=== PATIENT | male | born 1970 | race Caucasian/White ===

== ENCOUNTER 2018-03-23 03:38 | Observation (INO) | payer OTHER ==
[~2018-03-23] VITALS: Ht 175.3 cm; Wt 106.7 kg
[2018-03-23] MEDS ORDERED: ONDANSETRON 4 MG INJ IV STA (03:57)
[2018-03-23] MEDS ORDERED: NITROGLYCERIN 2% 1 GM OINT PKT TD STA (03:57)
[2018-03-23] MEDS ORDERED: ASPIRIN 81 MG TAB PO STA (03:57)
[2018-03-23] MEDS ORDERED: morphine 4 MG/ML VIAL IV STA (03:57)
--- NOTE | 2018-03-23 04:03 | ERD ---
ER Documentation Chief Complaint Chief Complaint C/O LT SIDED CP, LT ARM PAIN AND NUMBNESS X2 HRS, HX OF WI, 2 STENTS HPI 47-year-old gentleman history of coronary artery disease status post 2 stents who presents to the emergency room with chest discomfort, left arm discomfort with associated nausea and diaphoresis. Symptoms are improved at this time with only mild paresthesia to his left arm. No mid back pain. No fevers chills cough or shortness of breath. ROS All systems reviewed and are negative except as per history of present illness. FmHx Family History: No diabetes Physical Exam Vitals Vital Signs Date Temp Pulse Resp B/P (MAP) Pulse Ox O2 O2 Flow FiO2 Time Delivery Rate 03/23/18 Nasal 2 04:00 Cannula 03/23/18 96.5 74 18 165/88 98 03:41 (113) Physical Exam General: Well developed, well nourished, no acute distress Head: Normocephalic, atraumatic. Eyes: Pupils equally reactive, EOM intact ENT: Moist mucous membranes Neck: Supple, no lymphadenopathy Respiratory: Lungs clear bilaterally, no distress Cardiovascular: RRR, no murmurs, rubs, or gallops Abdominal: Soft, non-tender, non-distended, no peritoneal signs : Deferred MSK: No edema, no unilateral swelling, 5/5 strength Neurologic: Alert and oriented, moving all extremities, normal speech, no focal weakness, no cerebellar signs Skin: No rash Psych: Normal mood Result Diagram: 03/23/18 0400 03/23/18 0400 Results 24 hrs Laboratory Tests Test 03/23/18 04:00 White Blood Count 7.4 10^3/ul Red Blood Count 5.87 10^6/ul Hemoglobin 14.0 g/dl Hematocrit 45.2 % Mean Corpuscular Volume 77.0 fl Mean Corpuscular Hemoglobin 23.9 pg Mean Corpuscular Hemoglobin Concent 31.0 g/dl Red Cell Distribution Width 14.2 % Platelet Count 263 10^3/UL Mean Platelet Volume 11.3 fl Immature Granulocytes % 0.300 % Neutrophils % 60.3 % Lymphocytes % 30.2 % Monocytes % 6.1 % Eosinophils % 2.6 % Basophils % 0.5 % Nucleated Red Blood Cells % 0.0 /100WBC Immature Granulocytes # 0.020 10^3/ul Neutrophils # 4.4 10^3/ul Lymphocytes # 2.2 10^3/ul Monocytes # 0.5 10^3/ul Eosinophils # 0.2 10^3/ul Basophils # 0.0 10^3/ul Nucleated Red Blood Cells # 0.0 10^3/ul Sodium Level 142 mmol/L Potassium Level 4.0 mmol/L Chloride Level 109 mmol/L Carbon Dioxide Level 22 mmol/L Anion Gap 11 Blood Urea Nitrogen 16 mg/dl Creatinine 0.68 mg/dl Est Glomerular Filtrat Rate mL/min > 60 mL/min Glucose Level 123 mg/dl Calcium Level 9.1 mg/dl Troponin I < 0.012 ng/ml Current Medications Medications Dose Sig/Laure Start Time Status Last (Trade) Ordered Route PRN Stop Time Admin Dose Reason Admin Aspirin 162 mg ONCE STAT 03/23/18 DC 03/23/18 (Aspirin) PO 03:57 04:24 03/23/18 03:58 1 inch ONCE STAT 03/23/18 DC 03/23/18 Nitroglycerin TD 03:57 04:24 03/23/18 03:58 (Nitroglyceri n 2% Oint) Morphine 4 mg ONCE STAT 03/23/18 DC 03/23/18 Sulfate IV 03:57 04:24 (morphine) 03/23/18 03:58 Ondansetron 4 mg ONCE STAT 03/23/18 DC 03/23/18 HCl (Zofran IV 03:57 04:24 Inj) 03/23/18 03:58 Ondansetron 4 mg ER BRIDGE 03/23/18 HCl (Zofran PRN IV 06:00 Inj) NAUSEA AND/OR 03/24/18 05:59 VOMITING 650 mg ER BRIDGE 03/23/18 Acetaminophen PRN PO MILD 06:00 (Tylenol PAIN(1-3)OR 03/24/18 05:59 Tab) ELEVATED TEMP Procedures/MDM EKG, MONITORS, & DIAGNOSTIC IMAGING: EKG: I reviewed and interpreted a 12-lead EKG. Rhythm: Normal sinus rhythm ST Changes: No contiguous ST segment elevations T waves: No contiguous T wave inversions Impression: [No evidence of acute cardiac ischemia] Repeat EKG: EKG: I reviewed and interpreted a 12-lead EKG. Rhythm: Normal sinus rhythm ST Changes: No contiguous ST segment elevations T waves: No contiguous T wave inversions Impression: [No evidence of acute cardiac ischemia] Chest x-ray: I reviewed and interpreted a 1 view of the chest Mediastinum: No enlargement Cardiac silhouette: No cardiomegaly Airspace: Clear lung hays bilaterally without evidence of pneumothorax Bones: No evidence of fracture PROCEDURES: [None] LAB INTERPRETATION: * Negative troponin MEDICAL DECISION MAKING: The patient's history, physical exam and clinical presentation is concerning for possible cardiogenic etiology and acute coronary syndrome. This is very concerning for the patient's anginal equivalent Based on the patient's clinical exam and history and risk factors, I have a much lower clinical concern for pulmonary embolism, acute aortic dissection, pneumothorax, pneumonia, cardiac tamponade HEART Score: 5 MACE Rate: 16.6% Shared Decision Making: We had a conversation regarding risk stratification, MACE rate, and the risks, benefits, alternatives of disposition planning options. Disposition planning: Admit ER COURSE: * Aspirin and nitroglycerin provided. * Chest pain improved. Troponin negative. CONSULTATION: [None] DISPOSITION PLAN: Telemetry admission for management of chest pain to rule out acute coronary syndrome, serial enzymes, risk stratification and consideration of provocative testing CONSULTATION: Accepting care team and consultations: I discussed the current laboratory data, diagnostic imaging and emergency care provided. Admitting team: Dr. Lu Admitting team indication: Insurance directed Departure Diagnosis: Primary Impression: Chest pain Chest pain type: unspecified Qualified Codes: R07.9 - Chest pain, unspecified Additional Impression: Acute coronary syndrome Condition: Stable EMMANUELLE SANTANA MD Mar 23, 2018 04:03
[2018-03-23] MEDS ORDERED: ONDANSETRON 4 MG INJ IV PRN ×2 (06:00→06:30)
[2018-03-23] MEDS ORDERED: ACETAMINOPHEN 325 MG TAB PO PRN ×2 (06:00→06:30)
[2018-03-23] MEDS ORDERED: BISACODYL (EC) 5 MG TAB PO PRN (06:30)
[2018-03-23] MEDS ORDERED: NITROGLYCERIN (SL) 0.4 MG TAB SL PRN (06:30)
[2018-03-23] MEDS ORDERED: NACL 0.9% 3 ML SYG IV SCH (06:30)
[2018-03-23] MEDS ORDERED: DOCUSATE SODIUM 100 MG CAP PO PRN (06:30)
[2018-03-23] MEDS ORDERED: ASPI81TA52 PO (08:04)
--- NOTE | 2018-03-23 09:02 | HP ---
Date/Time of Note Date/Time of Note DATE: 03/23/18 TIME: 08:55 Assessment/Plan VTE Prophylaxis SCD applied (from Nsg): Yes Pharmacological prophylaxis: NA/contraindicated Pharm contraindication: low risk/ambulating Lines/Catheters IV Catheter Type (from Nrsg): Saline Lock Assessment/Plan Hospital Course This is a 47-year male being admitted to the telemetry floor for observation for: #1 chest pain: Rule out ACS versus anxiety. Patient gave me a different history than what he gave to the ED physician, he only reported a history of hyperlipidemia to me however according to the ED physician note was documented as having an VT and history of cardiac stents. We will need to confirm this with the patient. Nonetheless we will check an echocardiogram, will trend cardiac enzymes x3, the first set was negative. EKG was nonischemic. PRN nitro. Continue aspirin. Will check hemoglobin A 1C, lipid panel, TSH #2 Question CAD: will need to reconfirm with patient if he did have an VT and if he has cardiac stents. #3 hyperlipidemia: We will check a lipid panel, currently not on statin #4 obesity: We will check hemoglobin A1c, lipid panel, TSH, encourage diet and lifestyle modification #5 stress: I did try to delve more into the patient's stress however the patient stated it was a personal matter and he did not want to discuss it. I also discussed with him whether he would like to be seen by mental health professional however he declined at the current time. #4 DVT GI prophylaxis: SCDs, no GI prophylaxis indicated Further treatment strategy will be implemented as per the clinical course. Result Diagram: 03/23/18 0400 03/23/18 0400 Results 24hrs Laboratory Tests Test 03/23/18 04:00 White Blood Count 7.4 Red Blood Count 5.87 Hemoglobin 14.0 Hematocrit 45.2 Mean Corpuscular Volume 77.0 L Mean Corpuscular Hemoglobin 23.9 L Mean Corpuscular Hemoglobin Concent 31.0 L Red Cell Distribution Width 14.2 Platelet Count 263 Mean Platelet Volume 11.3 H Immature Granulocytes % 0.300 Neutrophils % 60.3 Lymphocytes % 30.2 Monocytes % 6.1 Eosinophils % 2.6 Basophils % 0.5 Nucleated Red Blood Cells % 0.0 Immature Granulocytes # 0.020 Neutrophils # 4.4 Lymphocytes # 2.2 Monocytes # 0.5 Eosinophils # 0.2 Basophils # 0.0 Nucleated Red Blood Cells # 0.0 Sodium Level 142 Potassium Level 4.0 Chloride Level 109 Carbon Dioxide Level 22 Anion Gap 11 Blood Urea Nitrogen 16 Creatinine 0.68 Est Glomerular Filtrat Rate mL/min > 60 Glucose Level 123 Hemoglobin A1c 5.3 Calcium Level 9.1 Troponin I < 0.012 Triglycerides Level 228 H Cholesterol Level 235 H LDL Cholesterol, Calculated 156 HDL Cholesterol 33 Cholesterol/HDL Ratio 7.1 Thyroid Stimulating Hormone (TSH) 2.550 HPI/ROS Admit Date/Time Admit Date/Time Hx of Present Illness Chief complaint: Chest pain, swelling This is a 47-year-old male who with a past medical history of hyperlipidemia who presented to [facility] after an episode of chest pain. Patient reports that he was trying to sleep and he started experiencing all of a sudden substernal chest pressure that radiated to the left arm. He reported sweating. He states that it resolved with morphine in the ER. He reports that he has been stressed for approximately 3 weeks but he declined to specify what his actual symptoms were. Please note for medical hx he did not report possible CAD hx. As per the ED physician documentation the patient reported a history of VT and cardiac stents but the patient did not endorse this to me. We will need to clarify this. Allergies: NKDA Medications: Aspirin ROS Const: As per HPI Eyes : No pain discharge or redness or change in visual acuity ENT: No pain, sore throat, congestion, congestion, dysphagia or discharge Respiratory: No shortness of breath, cough, sputum, wheezing, or pleuritic pain Cardiovascular: As per HPI GI : no change in appetite, abdominal pain, nausea, vomiting, diarrhea, constipation, or change in the color his stool Genitourinary: No dysuria, hematuria, flank pain , discharge or CVA tenderness Musculoskeletal: No joint pain, back pain, neck pain, restricted range of motion in neck or joints Skin: No rash, bruising or hives Neuro: No headache, dizziness, syncope, seizure, focal weakness Endocrine: No polyuria, polydipsia, temperature intolerance Psych: As per HPI PMH/Family/Social Past Medical History Hyperlipidemia, VT? Medications Current Medications Ondansetron HCl (Zofran Inj) 4 mg ER BRIDGE PRN IV NAUSEA AND/OR VOMITING; St art 03/23/18 at 06:00; Stop 03/24/18 at 05:59 Acetaminophen (Tylenol Tab) 650 mg ER BRIDGE PRN PO MILD PAIN(1-3)OR ELEVATED TEMP; Start 03/23/18 at 06:00; Stop 03/24/18 at 05:59 IV Flush (NS 3 ml) 3 ml PER PROTOCOL IV ; Start 03/23/18 at 06:30 Ondansetron HCl (Zofran Inj) 4 mg Q6H PRN IV NAUSEA AND/OR VOMITING; Start 03/23/18 at 06:30 Aspirin (Aspirin) 81 mg DAILY PO ; Start 03/23/18 at 09:00 Nitroglycerin (Nitroglycerin (Sl Tab) 0.4 Mg) 1 tab Q5M PRN SL CHEST PAIN; Start 03/23/18 at 06:30 Acetaminophen (Tylenol Tab) 650 mg Q6H PRN PO PAIN LEVEL 1-3 OR FEVER; Start 03/23/18 at 06:30 Docusate Sodium (Colace) 100 mg Q12H PRN PO CONSTIPATION; Start 03/23/18 at 06:30 Bisacodyl (Dulcolax) 5 mg DAILY PRN PO CONSTIPATION; Start 03/23/18 at 06:30 Coded Allergies: No Known Allergy (Unverified , 03/23/18) Past Surgical History Tonsillectomy, hernia surgery Cardiac stents? Family History Significant Family History: no pertinent family hx Social History Alcohol Use: none Smoking Status: Never smoker Drug Use: none Exam/Review of Systems Vital Signs Vitals Vital Signs Date Temp Pulse Resp B/P (MAP) Pulse Ox O2 O2 Flow FiO2 Time Delivery Rate 03/23/18 Nasal 2 04:00 Cannula 03/23/18 96.5 74 18 165/88 98 03:41 (113) Exam Exam General: Patient is a pleasant male currently lying in bed in no acute distress HEENT: Atraumatic, normocephalic. The pupils are equal, round and reactive. Extraocular motor are intact Neck: Supple with full range of motion. No rigidity or meningismus Chest: Nontender Lungs: Clear to auscultation bilaterally no crackles rales or wheezing Heart: Normal S1-S2, Regular rhythm and rate. No overt murmurs appreciated auscultation Abdomen: Obese, soft , nontender, nondistended , bowel sounds are present. No guarding no rebound tenderness , No masses or organomegaly. No costovertebral temporal angle mass Extremities: Normal to inspection, no edema no cyanosis Neurologic: Normal mental status, speech normal, cranial nerves II through XII are intact, motor and sensory are intact, no focal weakness Additional Comments EKG: I reviewed and interpreted a 12-lead EKG. Rhythm: Normal sinus rhythm ST Changes: No contiguous ST segment elevations T waves: No contiguous T wave inversions PROCEDURE: XR Chest. CLINICAL INDICATION: Chest pain TECHNIQUE: Frontal chest x-ray was obtained. COMPARISON: None. FINDINGS: The heart is not enlarged. Mediastinum is not widened. No hilar masses seen. Lungs are clear of any infiltrates. There is no effusion or pneumothorax. The osseous structures appear normal. IMPRESSION: No evidence for active cardiopulmonary disease. .Caesar Church MD, MD Date Time Electronically viewed and signed by .Caesar Church MD, MD on 03/23/2018 05:36 .A/ CC: EMMANUELLE SANTANA MD [id number] RENETTA SHORT Mar 23, 2018 09:02
[2018-03-23] MEDS: ASPIRIN 81 MG TAB PO SCH (09:11)
--- NOTE | 2018-03-23 09:27 | CONS ---
Date/Time of Note Date/Time of Note DATE: 03/23/18 TIME: 09:22 Assessment/Plan Assessment/Plan Hospital Course Chest pain: In setting of known CAD/stents, concerning for angina. Initial trop negative and EKG unremarkable. Will trend trop, if positive will need anticoagulation and cardiac cath. If second trop negative, cardiac CTA this afternoon. CAD/NV: noncompliant and only takes ASA HL Smoker: had quit for 8 yrs, now restarted 2 weeks ago -ASA -add lipitor 80mg -add metoprolol 25mg PO BID -stat trop. See above for details -possible cardiac CT today pending trop Result Diagram: 03/23/18 0400 03/23/18 0400 Results 24hrs Laboratory Tests Test 03/23/18 04:00 White Blood Count 7.4 Red Blood Count 5.87 Hemoglobin 14.0 Hematocrit 45.2 Mean Corpuscular Volume 77.0 L Mean Corpuscular Hemoglobin 23.9 L Mean Corpuscular Hemoglobin Concent 31.0 L Red Cell Distribution Width 14.2 Platelet Count 263 Mean Platelet Volume 11.3 H Immature Granulocytes % 0.300 Neutrophils % 60.3 Lymphocytes % 30.2 Monocytes % 6.1 Eosinophils % 2.6 Basophils % 0.5 Nucleated Red Blood Cells % 0.0 Immature Granulocytes # 0.020 Neutrophils # 4.4 Lymphocytes # 2.2 Monocytes # 0.5 Eosinophils # 0.2 Basophils # 0.0 Nucleated Red Blood Cells # 0.0 Sodium Level 142 Potassium Level 4.0 Chloride Level 109 Carbon Dioxide Level 22 Anion Gap 11 Blood Urea Nitrogen 16 Creatinine 0.68 Est Glomerular Filtrat Rate mL/min > 60 Glucose Level 123 Hemoglobin A1c 5.3 Calcium Level 9.1 Troponin I < 0.012 Triglycerides Level 228 H Cholesterol Level 235 H LDL Cholesterol, Calculated 156 HDL Cholesterol 33 Cholesterol/HDL Ratio 7.1 Thyroid Stimulating Hormone (TSH) 2.550 Consultation Date/Type/Reason Admit Date/Time Date of Consultation: Mar 23, 2018 Type of Consult Cardiology Reason for Consultation chest pain Requesting Provider: WAYNE SALINAS NP Hx of Present Illness 47 yo M who is my cousin's , with a h/o CAD s/p NV/PCI 2012, smoker, who presented with chest pain. He is not compliant with his meds and only takes ASA. He had quit smoking for 8 yrs but restarted 2 weeks ago due to stress. He notes significant recent stress. Last night he was still awake and started to feel chest pressure and left arm numbness which worried him as the symptoms were similar to his prior episode. Since admission he has been completely chest pain free. No SOB. per hPI Past Medical History per HPI Medications Current Medications Ondansetron HCl (Zofran Inj) 4 mg ER BRIDGE PRN IV NAUSEA AND/OR VOMITING; Start 03/23/18 at 06:00; Stop 03/24/18 at 05:59 Acetaminophen (Tylenol Tab) 650 mg ER BRIDGE PRN PO MILD PAIN(1-3)OR ELEVATED TEMP; Start 03/23/18 at 06:00; Stop 03/24/18 at 05:59 IV Flush (NS 3 ml) 3 ml PER PROTOCOL IV ; Start 03/23/18 at 06:30 Ondansetron HCl (Zofran Inj) 4 mg Q6H PRN IV NAUSEA AND/OR VOMITING; Start 03/23/18 at 06:30 Aspirin (Aspirin) 81 mg DAILY PO Last administered on 03/23/18at 09:11; Admin Dose 81 MG; Start 03/23/18 at 09:00 Nitroglycerin (Nitroglycerin (Sl Tab) 0.4 Mg) 1 tab Q5M PRN SL CHEST PAIN; Start 03/23/18 at 06:30 Acetaminophen (Tylenol Tab) 650 mg Q6H PRN PO PAIN LEVEL 1-3 OR FEVER; Start 03/23/18 at 06:30 Docusate Sodium (Colace) 100 mg Q12H PRN PO CONSTIPATION; Start 03/23/18 at 06:30 Bisacodyl (Dulcolax) 5 mg DAILY PRN PO CONSTIPATION; Start 03/23/18 at 06:30 Atorvastatin Calcium (Lipitor) 80 mg DAILY PO ; Start 03/23/18 at 09:30; Status UNV Metoprolol Tartrate (Lopressor) 25 mg BID PO ; Start 03/23/18 at 09:30; Status UNV Allergies: Coded Allergies: No Known Allergy (Unverified , 03/23/18) Social History Alcohol Use: none Smoking Status: Never smoker Drug Use: none Exam/Review of Systems Vital Signs Vitals Vital Signs Date Temp Pulse Resp B/P (MAP) Pulse Ox O2 O2 Flow FiO2 Time Delivery Rate 03/23/18 Nasal 2 04:00 Cannula 1/13/19 96.5 74 18 165/88 98 03:41 (113) Exam Constitutional: alert, oriented Psych: no complaints, nl mood/affect Head: normocephalic, atraumatic Neck: supple; No jvd Respiratory: clear to auscultation; No crackles/rales Cardiovascular: regular rate and rhythm; No edema, No systolic murmur Gastrointestinal: soft, non-tender; No distended Neurological: nl mental status, nl speech Additional Comments EKG: sinus, no ST changes Medications Medications Current Medications Ondansetron HCl (Zofran Inj) 4 mg ER BRIDGE PRN IV NAUSEA AND/OR VOMITING; Start 03/23/18 at 06:00; Stop 03/24/18 at 05:59 Acetaminophen (Tylenol Tab) 650 mg ER BRIDGE PRN PO MILD PAIN(1-3)OR ELEVATED TEMP; Start 03/23/18 at 06:00; Stop 03/24/18 at 05:59 IV Flush (NS 3 ml) 3 ml PER PROTOCOL IV ; Start 03/23/18 at 06:30 Ondansetron HCl (Zofran Inj) 4 mg Q6H PRN IV NAUSEA AND/OR VOMITING; Start 03/23/18 at 06:30 Aspirin (Aspirin) 81 mg DAILY PO Last administered on 03/23/18at 09:11; Admin Dose 81 MG; Start 03/23/18 at 09:00 Nitroglycerin (Nitroglycerin (Sl Tab) 0.4 Mg) 1 tab Q5M PRN SL CHEST PAIN; Start 03/23/18 at 06:30 Acetaminophen (Tylenol Tab) 650 mg Q6H PRN PO PAIN LEVEL 1-3 OR FEVER; Start 03/23/18 at 06:30 Docusate Sodium (Colace) 100 mg Q12H PRN PO CONSTIPATION; Start 03/23/18 at 06:30 Bisacodyl (Dulcolax) 5 mg DAILY PRN PO CONSTIPATION; Start 03/23/18 at 06:30 Atorvastatin Calcium (Lipitor) 80 mg DAILY PO ; Start 03/23/18 at 09:30; Status UNV Metoprolol Tartrate (Lopressor) 25 mg BID PO ; Start 03/23/18 at 09:30; Status UNV CHRISTA FALCON Mar 23, 2018 09:27
[2018-03-23] MEDS: ATORVASTATIN 80 MG TAB PO SCH (09:30)
[2018-03-23] MEDS: METOPROLOL 25 MG TAB PO SCH ×2 (09:30→20:53)
--- NOTE | 2018-03-23 11:27 | PN ---
Date/Time of Note Date/Time of Note DATE: 03/23/18 TIME: 11:26 Assessment/Plan VTE Prophylaxis SCD applied (from Nsg): Yes Pharmacological prophylaxis: LMWH Lines/Catheters IV Catheter Type (from Nrsg): Saline Lock Assessment/Plan Hospital Course SUBJECTIVE: Denies any chest pain. OBJECTIVE: Physical Exam General: Obese, 47 year-old male lying in bed in no apparent distress. HEENT: Normocephalic, atraumatic. Eyes: Anicteric sclerae, conjunctivae clear. ENT: Nasal septum midline, oral mucosa moist. Neck supple. Respiratory: Bilaterally clear breath sounds. No use of accessory muscles of respiration. No adventitious breath sounds. Cardiovascular: S1, S2 heard. Regular rate and rhythm. Abdomen: Soft, nontender, and nondistended. Bowel sounds positive in all 4 quadrants. Genitourinary: Deferred. Extremities: No cyanosis, no clubbing, no edema. Peripheral pulses palpable. Neurologic: Cranial nerves II through XII grossly intact. The patient is awake, alert, and oriented. Skin: Normal skin turgor. No skin rashes. Labs & Vitals per chart ASSESSMENT & PLAN 47-year-old male with comorbidities including coronary artery disease status post coronary artery stenting in 2018 & 2013, dyslipidemia, obesity, and nicotine use (quit 8 years ago, but restarted recently), who came to the emergency room with chief complaint of chest pain associated left arm numbness and diaphoresis, who was admitted to inpatient setting for further treatment and evaluation. 1. Chest pain. -Continue aspirin. -Rule out ACS, provided the patient's prior history of coronary artery disease. -Cardiology consult has obtained. -Troponins x2 negative. -CT coronary angiogram ordered. 2. History of CAD. -Status post coronary artery stenting in the past. -Continue aspirin. -Was started on statins and beta-blockers. 3. Dyslipidemia. -Continue statins. 4. Nicotine use. -Cessation advised. 5. Obesity. -BMI 34 kg/m. -Weight reduction advised. 6. Fluids, electrolytes, and nutrition. -Low-cholesterol diet. 7. DVT prophylaxis. -Subcutaneous Lovenox. 8. Plan. -Continue telemetry monitoring. -Rule out ACS with CT coronary angiogram. The patient was seen in collaboration with Dr. Day. Result Diagram: 03/23/18 0400 03/23/18 0400 Results 24hrs Laboratory Tests Test 03/23/18 04:00 03/23/18 10:02 White Blood Count 7.4 Red Blood Count 5.87 Hemoglobin 14.0 Hematocrit 45.2 Mean Corpuscular Volume 77.0 L Mean Corpuscular Hemoglobin 23.9 L Mean Corpuscular Hemoglobin Concent 31.0 L Red Cell Distribution Width 14.2 Platelet Count 263 Mean Platelet Volume 11.3 H Immature Granulocytes % 0.300 Neutrophils % 60.3 Lymphocytes % 30.2 Monocytes % 6.1 Eosinophils % 2.6 Basophils % 0.5 Nucleated Red Blood Cells % 0.0 Immature Granulocytes # 0.020 Neutrophils # 4.4 Lymphocytes # 2.2 Monocytes # 0.5 Eosinophils # 0.2 Basophils # 0.0 Nucleated Red Blood Cells # 0.0 Sodium Level 142 Potassium Level 4.0 Chloride Level 109 Carbon Dioxide Level 22 Anion Gap 11 Blood Urea Nitrogen 16 Creatinine 0.68 Est Glomerular Filtrat Rate mL/min > 60 Glucose Level 123 Hemoglobin A1c 5.3 Calcium Level 9.1 Iron Level 53 Total Iron Binding Capacity 297 Percent Iron Saturation 18 L Ferritin 133.0 Troponin I < 0.012 < 0.012 Triglycerides Level 228 H Cholesterol Level 235 H LDL Cholesterol, Calculated 156 HDL Cholesterol 33 Cholesterol/HDL Ratio 7.1 Thyroid Stimulating Hormone (TSH) 2.550 Creatine Kinase 66 Creatine Kinase Index 0.4 Creatinine Kinase MB (Mass) 0.25 Exam/Review of Systems Vital Signs Vitals Vital Signs Date Temp Pulse Resp B/P (MAP) Pulse Ox O2 O2 Flow FiO2 Time Delivery Rate 03/23/18 82 20 117/77 99 Room Air 09:30 (90) 03/23/18 2 04:00 03/23/18 96.5 03:41 Medications Medications Current Medications Ondansetron HCl (Zofran Inj) 4 mg ER BRIDGE PRN IV NAUSEA AND/OR VOMITING; Start 03/23/18 at 06:00; Stop 03/24/18 at 05:59 Acetaminophen (Tylenol Tab) 650 mg ER BRIDGE PRN PO MILD PAIN(1-3)OR ELEVATED TEMP; Start 03/23/18 at 06:00; Stop 03/24/18 at 05:59 IV Flush (NS 3 ml) 3 ml PER PROTOCOL IV ; Start 03/23/18 at 06:30 Ondansetron HCl (Zofran Inj) 4 mg Q6H PRN IV NAUSEA AND/OR VOMITING; Start 03/23/18 at 06:30 Aspirin (Aspirin) 81 mg DAILY PO Last administered on 03/23/18at 09:11; Admin Dose 81 MG; Start 03/23/18 at 09:00 Nitroglycerin (Nitroglycerin (Sl Tab) 0.4 Mg) 1 tab Q5M PRN SL CHEST PAIN; Start 03/23/18 at 06:30 Acetaminophen (Tylenol Tab) 650 mg Q6H PRN PO PAIN LEVEL 1-3 OR FEVER; Start 03/23/18 at 06:30 Docusate Sodium (Colace) 100 mg Q12H PRN PO CONSTIPATION; Start 03/23/18 at 06:30 Bisacodyl (Dulcolax) 5 mg DAILY PRN PO CONSTIPATION; Start 03/23/18 at 06:30 Atorvastatin Calcium (Lipitor) 80 mg DAILY PO ; Start 03/23/18 at 09:30 Metoprolol Tartrate (Lopressor) 25 mg BID PO ; Start 03/23/18 at 09:30 WAYNE SALINAS NP Mar 23, 2018 11:27
[2018-03-23] MEDS: ENOXAPARIN 40 MG/0.4 ML SYG SC SCH (12:39)
[2018-03-23 13:31] VITALS: PULSE 63; Ht 175.3 cm; Wt 106.7 kg
[2018-03-23 13:54] VITALS: PULSE 60
[2018-03-23] MEDS ORDERED: IOHEXOL 100 ML ONE (14:16)
[2018-03-23] MEDS ORDERED: SOD CHLORIDE 0.9% 100 ML ONE (14:16)
[2018-03-23 15:43] VITALS: BP 118/68; PULSE 63; RESP 17
[2018-03-23 16:17] VITALS: PULSE 65
[2018-03-23 20:00] VITALS: BP 119/76; PULSE 74; PULSE 80; RESP 18
[2018-03-24] VITALS: BP 110/58; PULSE 61; RESP 18
[2018-03-24 04:00] VITALS: BP 137/89; PULSE 62; PULSE 63; RESP 18
[2018-03-24 07:46] VITALS: BP 129/95; PULSE 73; RESP 18
--- NOTE | 2018-03-24 09:01 | CONS ---
Date/Time of Note Date/Time of Note DATE: 03/24/18 TIME: 08:50 Assessment/Plan Assessment/Plan Hospital Course Chest pain: Troponins negative x 3. No recurrence of pain. Cardiac CTA shows distal LM 60% with essentially normal LAD and Cx. RCA has a stent and was not well visualized. He certainly needs a cardiac cath for evaluation and confirmation of his anatomy. If he truly has distal LM disease he may need CABG or in experienced hands he may be a good candidate for stenting considering he is very young. I think this should be evaluated at a tertiary center such as [facility]. As such I have discussed this with the pt and family and the plan is for him to be discharged and the family will take him straight there for inpatient workup and cardiac cath. CAD/VT: noncompliant and only takes ASA. He is now willing to take any necessary medication especially if he ends up needing a left main stent HL Smoker: had quit for 8 yrs, now restarted 2 weeks ago -ASA -lipitor 80mg -metoprolol 25mg PO BID -discharge with immediate follow up at [facility] today Result Diagram: 03/24/18 0509 03/24/18 0509 Results 24hrs Laboratory Tests Test 03/23/18 10:02 03/23/18 15:49 03/24/18 05:09 Creatine Kinase 66 65 Creatine Kinase Index 0.4 0.3 Creatinine Kinase MB (Mass) 0.25 < 0.22 Troponin I < 0.012 < 0.012 White Blood Count 6.2 Red Blood Count 5.89 Hemoglobin 14.2 Hematocrit 45.3 Mean Corpuscular Volume 76.9 L Mean Corpuscular Hemoglobin 24.1 L Mean Corpuscular Hemoglobin Concent 31.3 L Red Cell Distribution Width 14.6 H Platelet Count 238 Mean Platelet Volume 11.5 H Immature Granulocytes % 0.300 Neutrophils % 59.0 Lymphocytes % 30.9 Monocytes % 6.7 Eosinophils % 2.6 Basophils % 0.5 Nucleated Red Blood Cells % 0.0 Immature Granulocytes # 0.020 Neutrophils # 3.7 Lymphocytes # 1.9 Monocytes # 0.4 Eosinophils # 0.2 Basophils # 0.0 Nucleated Red Blood Cells # 0.0 Sodium Level 144 Potassium Level 4.2 Chloride Level 106 Carbon Dioxide Level 25 Anion Gap 13 Blood Urea Nitrogen 12 Creatinine 0.76 Est Glomerular Filtrat Rate mL/min > 60 Glucose Level 104 Calcium Level 9.5 Phosphorus Level 4.9 Magnesium Level 2.3 Total Bilirubin 0.3 Direct Bilirubin 0.00 Indirect Bilirubin 0.3 Aspartate Amino Transf (AST/SGOT) 15 Alanine Aminotransferase (ALT/SGPT) 20 Alkaline Phosphatase 66 Total Protein 7.6 Albumin 4.1 Globulin 3.50 H Albumin/Globulin Ratio 1.17 Consultation Date/Type/Reason Admit Date/Time Mar 23, 2018 at 05:59 Initial Consult Date 03/23/18 Type of Consult Cardiology Requesting Provider: WAYNE SALINAS NP 24 HR Interval Summary Free Text/Dictation No o/n events. No chest pain. Ambulated around hallways without symptoms. Exam/Review of Systems Vital Signs Vitals Vital Signs Date Temp Pulse Resp B/P (MAP) Pulse Ox O2 O2 Flow FiO2 Time Delivery Rate 03/24/18 97.7 73 18 129/95 93 07:46 (106) 03/23/18 Room Air 12:30 03/23/18 2 04:00 Intake and Output 03/23/18 03/23/18 03/24/18 1515:00 23:00 07:00 IntakeIntake Total 500 ml 500 ml BalanceBalance 500 ml 500 ml Exam Constitutional: alert, oriented Psych: no complaints, nl mood/affect Head: normocephalic, atraumatic Neck: supple; No jvd Respiratory: clear to auscultation; No crackles/rales Cardiovascular: regular rate and rhythm; No edema, No systolic murmur Gastrointestinal: soft, non-tender; No distended Neurological: nl mental status, nl speech Medications Medications Current Medications IV Flush (NS 3 ml) 3 ml PER PROTOCOL IV ; Start 03/23/18 at 06:30 Ondansetron HCl (Zofran Inj) 4 mg Q6H PRN IV NAUSEA AND/OR VOMITING; Start 03/23/18 at 06:30 Aspirin (Aspirin) 81 mg DAILY PO Last administered on 03/23/18at 09:11; Admin Dose 81 MG; Start 03/23/18 at 09:00 Nitroglycerin (Nitroglycerin (Sl Tab) 0.4 Mg) 1 tab Q5M PRN SL CHEST PAIN; Start 03/23/18 at 06:30 Acetaminophen (Tylenol Tab) 650 mg Q6H PRN PO PAIN LEVEL 1-3 OR FEVER; Start 03/23/18 at 06:30 Docusate Sodium (Colace) 100 mg Q12H PRN PO CONSTIPATION; Start 03/23/18 at 06:30 Bisacodyl (Dulcolax) 5 mg DAILY PRN PO CONSTIPATION; Start 03/23/18 at 06:30 Atorvastatin Calcium (Lipitor) 80 mg DAILY PO Last administered on 03/23/18at 09:30; Admin Dose 80 MG; Start 03/23/18 at 09:30 Metoprolol Tartrate (Lopressor) 25 mg BID PO Last administered on 03/23/18at 20:53; Admin Dose 25 MG; Start 03/23/18 at 09:30 Enoxaparin Sodium (Lovenox) 40 mg DAILY SC Last administered on 03/23/18at 12 :39; Admin Dose 40 MG; Start 03/23/18 at 12:00 CHRISTA FALCON Mar 24, 2018 09:01
[2018-03-24] MEDS: ATORVASTATIN 80 MG TAB PO SCH (09:09)
[2018-03-24] MEDS: ASPIRIN 81 MG TAB PO SCH (09:10)
[2018-03-24] MEDS: METOPROLOL 25 MG TAB PO SCH (09:10)
[2018-03-24] MEDS: ENOXAPARIN 40 MG/0.4 ML SYG SC SCH (09:12)
[2018-03-24 09:14] VITALS: PULSE 72
[2018-03-24] MEDS ORDERED: ISOSORBIDE MONONITRATE(SR)30 MG TAB PO ONE (09:30)
--- NOTE | 2018-03-24 11:35 | PDOCDIS ---
Discharge Instructions CONDITION [id number] Patient Condition: [id number] Stable HOME CARE INSTRUCTIONS: [id number] Special Diet: [id number] CARDIAC DIET ACTIVITY: [id number] Activity Restrictions: [id number] Slowly Increase Activity Do not Drive FOLLOW UP/APPOINTMENTS Follow-up Plan appt Primary or Cardiology 1-2 days LUCIO GUPTA MD Mar 24, 2018 11:35
--- NOTE | 2018-03-24 11:41 | DS ---
Date/Time of Note Date/Time of Note DATE: 03/24/18 TIME: 11:37 Discharge Summary Admission/Discharge Info Admit Date/Time Mar 23, 2018 at 05:59 Discharge Date/Time Patient Condition: Stable Consults Cardiology Procedures Cardiac CT CXR labs Hx of Present Illness 47-year-old gentleman with clinical artery disease admitted with chest pain diaphoresis Hospital Course Admitted and evaluated for acute coronary syndrome. Seen by cardiology. Troponins negative. Cardiac CT done. There is concern for left main disease. Treatment of which can be CABG vs left main stent, which would be better managed at a tertiary care center. Patient requests tertiary care opinion, and is heading to [facility] later today. No active chest pain dyspnea, stable and fit for discharge. Chest pain Tobacco abuse status post counseling Hypertension Dyslipidemia? Home Meds Reported Medications Aspirin (Low Dose Aspirin) 81 Mg Tablet.dr, 81 MG PO DAILY, #30 TAB 03/23/18 Follow-up Plan appt Primary or Cardiology 1-2 days Primary Care Provider Care Physician No Primary Time spent on discharge: > 30 minutes Pending Labs Laboratory Tests Test 03/23/18 15:49 03/24/18 05:09 Creatine Kinase 65 IU/L (23-200) Creatine Kinase Index 0.3 Creatinine Kinase MB < 0.22 ng/ml (0.0-2.4) (Mass) Troponin I < 0.012 ng/ml (0.000-0.120) White Blood Count 6.2 10^3/ul (4.8-10.8) Red Blood Count 5.89 10^6/ul (4.70-6.10) Hemoglobin 14.2 g/dl (14.0-18.0) Hematocrit 45.3 % (42.0-52.0) Mean Corpuscular Volume 76.9 fl (82.0-101.0) Mean Corpuscular 24.1 pg (29.0-33.0) Hemoglobin Mean Corpuscular 31.3 g/dl (32.0-37.0) Hemoglobin Concent Red Cell Distribution 14.6 % (11.5-14.5) Width Platelet Count 238 10^3/UL (140-415) Mean Platelet Volume 11.5 fl (7.4-10.4) Immature Granulocytes % 0.300 % (0.001-0.429) Neutrophils % 59.0 % (39.0-77.0) Lymphocytes % 30.9 % (15.0-51.0) Monocytes % 6.7 % (0.0-11.0) Eosinophils % 2.6 % (0.0-7.0) Basophils % 0.5 % (0.0-2.0) Nucleated Red Blood Cells 0.0 /100WBC (0.0-0.0) % Immature Granulocytes # 0.020 10^3/ul (0.0-0.031) Neutrophils # 3.7 10^3/ul (1.6-7.5) Lymphocytes # 1.9 10^3/ul (0.8-2.9) Monocytes # 0.4 10^3/ul (0.3-0.9) Eosinophils # 0.2 10^3/ul (0.0-0.5) Basophils # 0.0 10^3/ul (0.0-0.1) Nucleated Red Blood Cells 0.0 10^3/ul (0.0-0.0) # Sodium Level 144 mmol/L (135-144) Potassium Level 4.2 mmol/L (3.5-5.1) Chloride Level 106 mmol/L (97-110) Carbon Dioxide Level 25 mmol/L (21-31) Anion Gap 13 (5-13) Blood Urea Nitrogen 12 mg/dl (7-20) Creatinine 0.76 mg/dl (0.61-1.24) Est Glomerular Filtrat > 60 mL/min (>60) Rate mL/min Glucose Level 104 mg/dl (70-220) Calcium Level 9.5 mg/dl (8.4-10.2) Phosphorus Level 4.9 mg/dl (2.5-4.9) Magnesium Level 2.3 mg/dl (1.7-2.5) Total Bilirubin 0.3 mg/dl (0.2-1.3) Direct Bilirubin 0.00 mg/dl (0.00-0.20) Indirect Bilirubin 0.3 mg/dl (0-1.1) Aspartate Amino 15 IU/L (15-46) Transf (AST/SGOT) Alanine 20 IU/L (13-69) Aminotransferase (ALT/SGPT ) Alkaline Phosphatase 66 IU/L (42-121) Total Protein 7.6 g/dl (6.1-8.1) Albumin 4.1 g/dl (3.3-4.9) Globulin 3.50 g/dl (1.3-3.2) Albumin/Globulin Ratio 1.17 LUCIO GUPTA MD Mar 24, 2018 11:41
--- NOTE | 2018-03-24 14:49 | RADRPT ---
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 Physician: RENETTA SHORT Quality: Adequate Procedures: Transthoracic echocardiogram with complete 2D, M-Mode, and doppler examination. Indications: Chest Pain. 2D/M Mode Doppler Measurement Value Normal Ranges Measurement Value Normal Ranges LVIDd 2D 5.3 3.5 - 5.6 cm AV Mean Tunde 0.9 m/sec LVIDs 2D 3.7 2.1 - 4.1 cm AV Mean PG 4.0 mmHg LVPWd 2D 1.0 0.6 - 1.1 cm AV Peak Tunde 1.4 m/sec IVSd 2D 1.3 0.6 - 1.1 cm AV Peak PG 8.0 mmHg AoR Diam 2D 3.4 2.0 - 3.7 cm AV VTI 27.7 cm LA/Ao 2D 1 0 - 1 LVOT Mean Tun[place] 0.6 m/sec EF 2D 57.0 50.0 - 65.0 % LVOT Mean PG 2.0 mmHg LA Dimen 2D 3.5 2.3 - 4.0 cm LVOT Peak [place]de 0.8 m/sec IVC Diam 2.0 1.2 - 2.0 LVOT Peak PG 3.0 mmHg MV E Peak Tunde 0.7 m/sec MV A Peak [place] 0.6 m/sec MV E/A 1.3 MV PHT 52.0 msec MV Decel Time 176 msec MV Decel Cecil 4 Lat E` Tunde 0.2 m/sec Lateral E/E` 4.8 Med E` Tunde 0.1 m/sec MV E/A 1.3 MV PHT 52.0 msec MVA PHT 4.2 cm2 TAPSE 1.9 cm TR Peak Tunde 2.3 m/sec TR Peak PG 21.0 mmHg RVSP 24.0 mmHg RA Pressure 3.0 Findings Left Ventricle: Normal left ventricular systolic function. Normal left ventricular cavity size. Normal left ventricular wall thickness. Ejection fraction is visually estimated at 55 %. Tissue Doppler/Mitral Doppler indices are within normal limits. Right Ventricle: Normal right ventricular size. Normal right ventricular systolic function. Left Atrium: The left atrium is normal in size. Right Atrium: The right atrium is normal in size. Mitral Valve: Normal appearance and function of the mitral valve with trace physiologic regurgitation. Aortic Valve: Normal appearance of the aortic valve. No significant aortic stenosis or insufficiency. Tricuspid Valve: Normal appearance and function of the tricuspid valve with trace physiologic regurgitation. Normal right ventricular systolic pressure. Estimated peak PA systolic pressure 24 mmHg. Pulmonic Valve: Normal pulmonic valve appearance. Pericardium: Normal pericardium with no significant pericardial effusion. Aorta: Normal aortic root. IVC: Normal size and normal respiratory collapse consistent with normal right atrial pressure. Conclusions Normal left ventricular systolic function. Normal left ventricular cavity size. Normal left ventricular wall thickness. Ejection fraction is visually estimated at 55 %. Tissue Doppler/Mitral Doppler indices are within normal limits. No significant valvular stenosis or regurgitation seen. Estimated peak PA systolic pressure 24 mmHg based on RA pressure of 3 mmHg. Electronically Signed By: Stevie Palumbo 24-Mar-2018 14:48:23 -0800 Patient Name: DAKOTAH WOOD Study Date: 24-Mar-2018 [id number]
== END 2018-03-24 13:24 | disposition home or self-care (01) ==
LOC: E/R 03:38 → 6WM 05:59
PROVIDERS: ADMIT Family Medicine; ATTEND Family Medicine
DX: I25.10 Atherosclerotic heart disease of native coronary artery without angina pectoris (principal); I10 Essential (primary) hypertension; F17.200 Nicotine dependence, unspecified, uncomplicated
CPT/HCPCS: 36415; 71045; 75574; 80048; 80053; 80061; 82550; 82553; 82728; 83036; 83540; 83735; 84100; 84443; 84484; 85025; 93005; 93306; 96374; 96375; J1650; J2270; J2405; Q9967; Z7500; Z7502; Z7610; G0378